=== PATIENT | female | born 1940 | race Caucasian/White ===

== ENCOUNTER → 2016-12-11 | Outpatient (CLI) | payer OTHER ==
--- NOTE | 2016-12-11 17:16 | EKG ---
[facility] [place] Measurements Intervals [place] Rate: 75 P: 75 AL: 136 QRS: 12 QRSD: 118 T: 39 QT: 394 QTc: 423 Interpretive Statements SINUS RHYTHM INCOMPLETE RIGHT BUNDLE BRANCH BLOCK No previous ECG available for comparison Electronically Signed On 12-12-16 11:44:31 MDT by Luiz Calhoun [id number]
== END ==
LOC: EKG 11:35
PROVIDERS: ATTEND Physician Assistant Medical
DX: R00.2 Palpitations (principal); I10 Essential (primary) hypertension; I45.10 Unspecified right bundle-branch block
CPT/HCPCS: 93005; 93010

== ENCOUNTER → 2017-03-13 | Outpatient (CLI) | payer OTHER ==
[2017-03-13 16:16] LABS: BASOPHILS # (AUTO) 0.02 10*3/UL; BASOPHILS % (AUTO) 0.5 % (0-1); EOSINOPHILS # (AUTO) 0.15 10*3/UL; EOSINOPHILS % (AUTO) 3.4 % (0-8); HEMATOCRIT 34.9 % (37.0-47.0); HEMOGLOBIN 11.3 g/dL (12.0-16.0); LYMPHOCYTES # (AUTO) 1.52 10*3/uL; MEAN CORPUSCULAR HEMOGLOBIN 30.1 PG (27-31); MEAN CORPUSCULAR HGB CONC 32.4 g/dL (33-37); MEAN CORPUSCULAR VOLUME 93.1 FL (81-99); MEAN PLATELET VOLUME 10.2 FL (7.4-12.2); MONOCYTES # (AUTO) 0.37 10*3/UL (0.3-0.8); MONOCYTES % (AUTO) 8.4 % (5-15); NEUTROPHILS # (AUTO) 2.35 10*3/UL; NEUTROPHILS % (AUTO) 53.1 % (50-80); RED BLOOD COUNT 3.75 10^6/uL (4.20-5.40)
[2017-03-13 16:17] LABS: PLATELET MORPHOLOGY COMMENT NORMAL MORPHOLOGY (NORM); RBC MORPHOLOGY COMMENT NORMAL MORPHOLOGY (NORM); WBC MORPHOLOGY COMMENT NORMAL MORPHOLOGY (NORM)
[2017-03-13 16:27] LABS: HEMOGLOBIN A1C 6.03 % (4.2-6.0)
== END ==
LOC: LAB 11:07
PROVIDERS: ATTEND Physician Assistant Medical
DX: E11.9 Type 2 diabetes mellitus without complications (principal); D50.8 Other iron deficiency anemias
CPT/HCPCS: 83036; 85025